=== PATIENT | male | born 1970 | race Caucasian/White ===

== ENCOUNTER 2018-08-31 21:46 | Emergency (ER) | payer OTHER ==
[2018-08-31 23:13] LABS: ADD MAN DIFF? NO
[2018-08-31 23:15] LABS: BASOPHILS % 0.4 % (0.0-2.0); EOSINOPHILS # 0.4 10^3/ul (0.0-0.5); EOSINOPHILS % 8.9 % (0.0-7.0); HEMATOCRIT 40.9 % (42.0-52.0); HEMOGLOBIN 14.4 g/dl (14.0-18.0); LYMPHOCYTES # 1.2 10^3/ul (0.8-2.9); LYMPHOCYTES % 24.6 % (15.0-51.0); MEAN CORPUSCULAR HEMOGLOBIN 29.4 pg (29.0-33.0); MEAN CORPUSCULAR HGB CONC 35.2 g/dl (32.0-37.0); MEAN CORPUSCULAR VOLUME 83.6 fl (82.0-101.0); MEAN PLATELET VOLUME 9.9 fl (7.4-10.4); MONOCYTE # 0.6 10^3/ul (0.3-0.9); MONOCYTES % 12.1 % (0.0-11.0); NEUTROPHIL # 2.5 10^3/ul (1.6-7.5); NEUTROPHILS % 53.8 % (39.0-77.0); PLATELET COUNT 217 10^3/UL (140-415); RED BLOOD COUNT 4.89 10^6/ul (4.70-6.10); RED CELL DISTRIBUTION WIDTH 12.5 % (11.5-14.5)
[2018-08-31 23:15] LABS: WHITE BLOOD COUNT 4.7 10^3/ul (4.8-10.8)
[2018-08-31 23:33] LABS: ALANINE AMINOTRANSFERASE 47 IU/L (13-69); ALBUMIN 4.3 g/dl (3.3-4.9); ALBUMIN/GLOBULIN RATIO 1.16; ALKALINE PHOSPHATASE 176 IU/L (42-121); ANION GAP 12 (5-13); ASPARTATE AMINO TRANSFERASE 42 IU/L (15-46); BILIRUBIN,INDIRECT 0.8 mg/dl (0-1.1); BILIRUBIN,TOTAL 0.8 mg/dl (0.2-1.3); BLOOD UREA NITROGEN 15 mg/dl (7-20); CALCIUM 8.9 mg/dl (8.4-10.2); CARBON DIOXIDE 26 mmol/L (21-31); CHLORIDE 103 mmol/L (97-110); CREATININE 0.81 mg/dl (0.61-1.24); Estimated GFR > 60 mL/min (>60); GLUCOSE 87 mg/dl (70-220); LIPASE 62 U/L (23-300); POTASSIUM 3.1 mmol/L (3.5-5.1); SODIUM 141 mmol/L (135-144)
[2018-09-01] MEDS: IOHEXOL 300MG/ML 150 ML BTL (00:13)
[2018-09-01] MEDS: SOD CHLORIDE 0.9% 100 ML (00:13)
[2018-09-01] MEDS: ONDANSETRON 4 MG INJ IV (02:20)
[2018-09-01] MEDS: HYDROmorphONE 1 MG/ML SYG IV (02:20)
== END 2018-09-01 03:50 | disposition home or self-care (01) ==
LOC: E/R 09-01 03:50
DX: J18.1 Lobar pneumonia, unspecified organism (principal); K59.00 Constipation, unspecified
CPT/HCPCS: 36415; 74177; 80053; 83690; 85025; 99284-25

== ENCOUNTER 2018-09-07 21:50 | Inpatient (IN) | payer OTHER ==
[2018-09-07] MEDS: ALBUTEROL 0.5% (NEB) 2.5 MG/0.5 ML AMP INH (22:29)
[2018-09-07 22:43] LABS: ADD MAN DIFF? NO
[2018-09-07] MEDS: CEFTRIAXONE 1 GM/50 ML (PMX) 50 ML IVPB (22:47)
[2018-09-07] MEDS: IBUPROFEN 600 MG TAB PO (22:47)
[2018-09-07] MEDS: SODIUM CHLORIDE 0.9% 1L BAG IV* (22:48)
[2018-09-07 22:52] LABS: BASOPHILS % 0.6 % (0.0-2.0); EOSINOPHILS # 0.5 10^3/ul (0.0-0.5); EOSINOPHILS % 8.3 % (0.0-7.0); HEMATOCRIT 45.2 % (42.0-52.0); HEMOGLOBIN 15.7 g/dl (14.0-18.0); LYMPHOCYTES # 1.3 10^3/ul (0.8-2.9); LYMPHOCYTES % 21.2 % (15.0-51.0); MEAN CORPUSCULAR HEMOGLOBIN 29.3 pg (29.0-33.0); MEAN CORPUSCULAR HGB CONC 34.7 g/dl (32.0-37.0); MEAN CORPUSCULAR VOLUME 84.3 fl (82.0-101.0); MEAN PLATELET VOLUME 10.1 fl (7.4-10.4); MONOCYTE # 0.6 10^3/ul (0.3-0.9); MONOCYTES % 9.5 % (0.0-11.0); NEUTROPHIL # 3.7 10^3/ul (1.6-7.5); NEUTROPHILS % 59.9 % (39.0-77.0); PLATELET COUNT 274 10^3/UL (140-415); RED BLOOD COUNT 5.36 10^6/ul (4.70-6.10); RED CELL DISTRIBUTION WIDTH 12.3 % (11.5-14.5)
[2018-09-07 22:52] LABS: WHITE BLOOD COUNT 6.2 10^3/ul (4.8-10.8)
[2018-09-07 23:08] LABS: ALANINE AMINOTRANSFERASE 55 IU/L (13-69); ALBUMIN 4.8 g/dl (3.3-4.9); ALBUMIN/GLOBULIN RATIO 1.23; ALKALINE PHOSPHATASE 152 IU/L (42-121); ANION GAP 13 (5-13); ASPARTATE AMINO TRANSFERASE 51 IU/L (15-46); BILIRUBIN,INDIRECT 0.7 mg/dl (0-1.1); BILIRUBIN,TOTAL 0.7 mg/dl (0.2-1.3); BLOOD UREA NITROGEN 14 mg/dl (7-20); CALCIUM 9.5 mg/dl (8.4-10.2); CARBON DIOXIDE 27 mmol/L (21-31); CHLORIDE 101 mmol/L (97-110); CREATININE 0.76 mg/dl (0.61-1.24); Estimated GFR > 60 mL/min (>60); GLUCOSE 105 mg/dl (70-220); LIPASE 91 U/L (23-300); POTASSIUM 3.6 mmol/L (3.5-5.1); SODIUM 141 mmol/L (135-144); TOTAL PROTEIN 8.7 g/dl (6.1-8.1)
[2018-09-07 23:11] LABS: INR 0.94; PROTIME 12.7 Sec (11.9-14.9)
[2018-09-07 23:17] LABS: B-TYPE NATRIURETIC PEPTIDE 43 PG/ML (0-125)
[2018-09-07 23:20] LABS: TROPONIN-I < 0.012 ng/ml (0.000-0.120)
[2018-09-08] MEDS: ALBUTEROL 0.083% (NEB) 2.5 MG/3 ML AMP HHN (00:42)
[2018-09-08 00:57] LABS: LACTIC ACID 1.8 mmol/L (0.5-2.0)
[2018-09-08] MEDS ORDERED: ACETAMINOPHEN 325 MG TAB PO (06:00)
[2018-09-08] MEDS ORDERED: CEFTRIAXONE 1 GM/50 ML (PMX) 50 ML IVPB (06:00)
[2018-09-08] MEDS ORDERED: ONDANSETRON 4 MG INJ IV (06:00)
[2018-09-08] MEDS: PANTOPRAZOLE (EC) 40 MG TAB PO (06:34)
[2018-09-08] MEDS: SOD CHLORIDE 0.9% 1,000 ML IV (06:35)
[2018-09-08] MEDS: AZITHROMYCIN 500 MG in SOD CHLORIDE 0.9% 250 ML IVPB (08:26)
[2018-09-08] MEDS: IBUPROFEN 600 MG TAB GTB ×3 (08:28→21:32)
[2018-09-08] MEDS: ENOXAPARIN 40 MG/0.4 ML SYG SC (08:37)
[2018-09-08 15:33] LABS: HAAIG REFLEX REFLEX FILED
[2018-09-08 16:11] LABS: HEPATITIS B SURFACE ANTIGEN NEGATIVE (NEGATIVE)
[2018-09-08 16:29] LABS: HEPATITIS B CORE ANTIBODY NEGATIVE (NEGATIVE); HEPATITIS C VIRAL ANTIBODY NEGATIVE (NEGATIVE)
[2018-09-08] MEDS: SOD CHLORIDE 0.9% 100 ML (18:02)
[2018-09-08] MEDS: IODIXANOL LOCM 100 ML BTL (18:03)
[2018-09-08] MEDS: CEFTRIAXONE 1 GM/50 ML (PMX) 50 ML IVPB (21:31)
[2018-09-09] MEDS: SOD CHLORIDE 0.9% 1,000 ML IV (02:00)
[2018-09-09] MEDS: HYDROCODONE/APAP (5/325) TAB PO (04:57)
[2018-09-09] MEDS: PANTOPRAZOLE (EC) 40 MG TAB PO (05:10)
[2018-09-09 06:13] LABS: ADD MAN DIFF? NO
[2018-09-09 06:21] LABS: WHITE BLOOD COUNT 5.7 10^3/ul (4.8-10.8)
[2018-09-09 06:21] LABS: BASOPHILS % 0.5 % (0.0-2.0); EOSINOPHILS # 0.5 10^3/ul (0.0-0.5); EOSINOPHILS % 8.4 % (0.0-7.0); HEMATOCRIT 40.1 % (42.0-52.0); HEMOGLOBIN 13.8 g/dl (14.0-18.0); LYMPHOCYTES # 0.9 10^3/ul (0.8-2.9); LYMPHOCYTES % 15.7 % (15.0-51.0); MEAN CORPUSCULAR HEMOGLOBIN 29.7 pg (29.0-33.0); MEAN CORPUSCULAR HGB CONC 34.4 g/dl (32.0-37.0); MEAN CORPUSCULAR VOLUME 86.4 fl (82.0-101.0); MONOCYTE # 0.7 10^3/ul (0.3-0.9); MONOCYTES % 12.4 % (0.0-11.0); NEUTROPHIL # 3.6 10^3/ul (1.6-7.5); NEUTROPHILS % 62.5 % (39.0-77.0); PLATELET COUNT 212 10^3/UL (140-415); RED BLOOD COUNT 4.64 10^6/ul (4.70-6.10); RED CELL DISTRIBUTION WIDTH 12.9 % (11.5-14.5)
[2018-09-09 06:56] LABS: ANION GAP 7 (5-13); BLOOD UREA NITROGEN 11 mg/dl (7-20); CALCIUM 8.5 mg/dl (8.4-10.2); CARBON DIOXIDE 25 mmol/L (21-31); CHLORIDE 108 mmol/L (97-110); Estimated GFR > 60 mL/min (>60); GLUCOSE 103 mg/dl (70-220); POTASSIUM 4.3 mmol/L (3.5-5.1); SODIUM 140 mmol/L (135-144)
[2018-09-09] MEDS: ENOXAPARIN 40 MG/0.4 ML SYG SC (08:41)
[2018-09-09] MEDS: IBUPROFEN 600 MG TAB GTB ×3 (08:44→21:33)
[2018-09-09] MEDS: AL HYDROX/MG HYDROX/SIMETH 30 ML CUP PO (08:44)
[2018-09-09] MEDS: AZITHROMYCIN 500MG/NS (PMX) 250 ML IVPB (12:19)
[2018-09-09] MEDS: LUBIPROSTONE 24 MCG CAP PO (21:32)
[2018-09-09] MEDS: POLYETHYLENE GLYCOL 17 GM PACKET PO (21:33)
[2018-09-09] MEDS: CEFTRIAXONE 1 GM/50 ML (PMX) 50 ML IVPB (21:45)
[2018-09-10] MEDS: PANTOPRAZOLE (EC) 40 MG TAB PO (05:25)
[2018-09-10] MEDS: IBUPROFEN 600 MG TAB GTB ×2 (05:25→20:55)
[2018-09-10] MEDS ORDERED: AZITHROMYCIN 250 MG TAB PO (06:00)
[2018-09-10] MEDS ORDERED: IBUPROFEN 600 MG TAB PO (06:00)
[2018-09-10] MEDS ORDERED: POLYETHYLENE GLYCOL 17 GM PACKET PO (09:00)
[2018-09-10] MEDS: AZITHROMYCIN 250 MG TAB PO (09:47)
[2018-09-10] MEDS: LUBIPROSTONE 24 MCG CAP PO ×2 (09:47→20:54)
[2018-09-10] MEDS: ACYCLOVIR 800 MG TAB PO ×4 (09:48→21:04)
[2018-09-10] MEDS: GABAPENTIN 300 MG CAP PO ×2 (09:48→20:56)
[2018-09-10] MEDS: BISACODYL (EC) 5 MG TAB PO ×2 (15:59→20:54)
[2018-09-10] MEDS: PEG/ELECTROLYTES 4L BTL PO ×2 (16:02→20:57)
[2018-09-10] MEDS: GUAIFENESIN/DM 5ML CUP PO (20:55)
[2018-09-10] MEDS: CEFTRIAXONE 1 GM/50 ML (PMX) 50 ML IVPB (22:00)
[2018-09-11] MEDS: FLUCONAZOLE 200 MG (PMX) 100 ML IVPB ×2 (00:31→23:44)
[2018-09-11] MEDS: PANTOPRAZOLE (EC) 40 MG TAB PO (05:20)
[2018-09-11 05:35] LABS: ADD MAN DIFF? NO
[2018-09-11 05:48] LABS: BASOPHILS % 0.6 % (0.0-2.0); EOSINOPHILS # 0.3 10^3/ul (0.0-0.5); EOSINOPHILS % 4.8 % (0.0-7.0); HEMATOCRIT 40.4 % (42.0-52.0); HEMOGLOBIN 14.1 g/dl (14.0-18.0); LYMPHOCYTES # 1.2 10^3/ul (0.8-2.9); LYMPHOCYTES % 21.3 % (15.0-51.0); MEAN CORPUSCULAR HEMOGLOBIN 29.7 pg (29.0-33.0); MEAN CORPUSCULAR HGB CONC 34.9 g/dl (32.0-37.0); MEAN CORPUSCULAR VOLUME 85.1 fl (82.0-101.0); MEAN PLATELET VOLUME 10.4 fl (7.4-10.4); MONOCYTE # 0.7 10^3/ul (0.3-0.9); NEUTROPHIL # 3.3 10^3/ul (1.6-7.5); NEUTROPHILS % 59.7 % (39.0-77.0); PLATELET COUNT 226 10^3/UL (140-415); RED BLOOD COUNT 4.75 10^6/ul (4.70-6.10); RED CELL DISTRIBUTION WIDTH 12.5 % (11.5-14.5)
[2018-09-11 05:48] LABS: WHITE BLOOD COUNT 5.5 10^3/ul (4.8-10.8)
[2018-09-11 05:59] LABS: INR 1.02; PROTIME 13.5 Sec (11.9-14.9); PT RATIO 1.1
[2018-09-11 06:00] LABS: PARTIAL THROMBOPLASTIN TIME 39.8 Sec (23.0-35.0)
[2018-09-11 06:43] LABS: ALANINE AMINOTRANSFERASE 107 IU/L (13-69); ALBUMIN/GLOBULIN RATIO 1.11; ALKALINE PHOSPHATASE 241 IU/L (42-121); ANION GAP 11 (5-13); ASPARTATE AMINO TRANSFERASE 115 IU/L (15-46); BILIRUBIN,INDIRECT 0.5 mg/dl (0-1.1); BILIRUBIN,TOTAL 0.5 mg/dl (0.2-1.3); BLOOD UREA NITROGEN 12 mg/dl (7-20); CALCIUM 8.7 mg/dl (8.4-10.2); CARBON DIOXIDE 22 mmol/L (21-31); CHLORIDE 103 mmol/L (97-110); CREATININE 0.79 mg/dl (0.61-1.24); Estimated GFR > 60 mL/min (>60); GLUCOSE 107 mg/dl (70-220); POTASSIUM 3.9 mmol/L (3.5-5.1); SODIUM 136 mmol/L (135-144); TOTAL PROTEIN 7.6 g/dl (6.1-8.1)
[2018-09-11] MEDS: LUBIPROSTONE 24 MCG CAP PO ×2 (09:00→20:34)
[2018-09-11] MEDS: AZITHROMYCIN 250 MG TAB PO (09:00)
[2018-09-11] MEDS: ACYCLOVIR 800 MG TAB PO ×5 (09:00→20:34)
[2018-09-11] MEDS: GABAPENTIN 300 MG CAP PO ×2 (09:00→20:34)
[2018-09-11] MEDS: PROPOFOL 40 ML (11:38)
[2018-09-11] MEDS: LIDOCAINE 100 MG SYRINGE (11:38)
[2018-09-11] MEDS: FENTAnyl 50 MCG/ML VIAL (11:51)
[2018-09-11] MEDS: GUAIFENESIN/DM 5ML CUP PO (20:33)
[2018-09-11] MEDS: CEFTRIAXONE 1 GM/50 ML (PMX) 50 ML IVPB (22:21)
[2018-09-11] MEDS: HYDROCODONE/APAP (5/325) TAB PO (23:55)
[2018-09-12] MEDS: PANTOPRAZOLE (EC) 40 MG TAB PO (05:36)
[2018-09-12] MEDS: LUBIPROSTONE 24 MCG CAP PO ×2 (09:51→20:56)
[2018-09-12] MEDS: GABAPENTIN 300 MG CAP PO ×2 (09:51→20:57)
[2018-09-12] MEDS: AZITHROMYCIN 250 MG TAB PO (09:51)
[2018-09-12] MEDS: ACYCLOVIR 800 MG TAB PO ×5 (10:12→21:00)
[2018-09-12] MEDS: GUAIFENESIN/DM 5ML CUP PO (12:56)
[2018-09-12] MEDS: IBUPROFEN 200 MG TAB PO (15:00)
[2018-09-12] MEDS: IBUPROFEN 600 MG TAB GTB (19:16)
[2018-09-12] MEDS: CEFTRIAXONE 1 GM/50 ML (PMX) 50 ML IVPB (21:01)
[2018-09-12] MEDS: AL HYDROX/MG HYDROX/SIMETH 30 ML CUP PO (21:31)
[2018-09-12] MEDS: FLUCONAZOLE 400 MG/NS (PMX) 200 ML IVPB (22:24)
[2018-09-13] MEDS: PANTOPRAZOLE (EC) 40 MG TAB PO (06:13)
[2018-09-13 08:01] LABS: ADD MAN DIFF? NO
[2018-09-13 08:13] LABS: BASOPHILS % 0.8 % (0.0-2.0); EOSINOPHILS # 0.5 10^3/ul (0.0-0.5); EOSINOPHILS % 13.4 % (0.0-7.0); HEMOGLOBIN 13.4 g/dl (14.0-18.0); MEAN CORPUSCULAR HEMOGLOBIN 29.1 pg (29.0-33.0); MEAN CORPUSCULAR HGB CONC 34.4 g/dl (32.0-37.0); MEAN CORPUSCULAR VOLUME 84.8 fl (82.0-101.0); MEAN PLATELET VOLUME 10.4 fl (7.4-10.4); MONOCYTE # 0.5 10^3/ul (0.3-0.9); MONOCYTES % 14.7 % (0.0-11.0); NEUTROPHIL # 1.6 10^3/ul (1.6-7.5); NEUTROPHILS % 43.8 % (39.0-77.0); PLATELET COUNT 216 10^3/UL (140-415); RED CELL DISTRIBUTION WIDTH 12.8 % (11.5-14.5)
[2018-09-13 08:13] LABS: WHITE BLOOD COUNT 3.7 10^3/ul (4.8-10.8)
[2018-09-13 08:22] LABS: ALANINE AMINOTRANSFERASE 75 IU/L (13-69); ALBUMIN 3.5 g/dl (3.3-4.9); ALBUMIN/GLOBULIN RATIO 1.02; ALKALINE PHOSPHATASE 203 IU/L (42-121); ANION GAP 7 (5-13); ASPARTATE AMINO TRANSFERASE 58 IU/L (15-46); BILIRUBIN,INDIRECT 0.3 mg/dl (0-1.1); BILIRUBIN,TOTAL 0.3 mg/dl (0.2-1.3); BLOOD UREA NITROGEN 14 mg/dl (7-20); CALCIUM 8.7 mg/dl (8.4-10.2); CARBON DIOXIDE 28 mmol/L (21-31); CHLORIDE 105 mmol/L (97-110); CREATININE 0.78 mg/dl (0.61-1.24); Estimated GFR > 60 mL/min (>60); GLUCOSE 105 mg/dl (70-220); SODIUM 140 mmol/L (135-144); TOTAL PROTEIN 6.9 g/dl (6.1-8.1)
[2018-09-13] MEDS: LUBIPROSTONE 24 MCG CAP PO ×2 (09:02→20:50)
[2018-09-13] MEDS: AZITHROMYCIN 250 MG TAB PO (09:03)
[2018-09-13] MEDS: GABAPENTIN 300 MG CAP PO ×2 (09:03→20:50)
[2018-09-13] MEDS: ACYCLOVIR 800 MG TAB PO ×5 (10:16→20:50)
[2018-09-13] MEDS: FLUCONAZOLE 400 MG/NS (PMX) 200 ML IVPB (23:07)
[2018-09-14] MEDS: IBUPROFEN 600 MG TAB GTB (00:52)
[2018-09-14] MEDS: GUAIFENESIN/DM 5ML CUP PO (00:52)
[2018-09-14 05:28] LABS: ADD MAN DIFF? NO
[2018-09-14 05:32] LABS: BASOPHIL # 0.1 10^3/ul (0.0-0.1); BASOPHILS % 1.1 % (0.0-2.0); EOSINOPHILS # 0.6 10^3/ul (0.0-0.5); EOSINOPHILS % 13.2 % (0.0-7.0); HEMATOCRIT 40.6 % (42.0-52.0); HEMOGLOBIN 13.9 g/dl (14.0-18.0); LYMPHOCYTES # 1.3 10^3/ul (0.8-2.9); LYMPHOCYTES % 28.5 % (15.0-51.0); MEAN CORPUSCULAR HEMOGLOBIN 29.3 pg (29.0-33.0); MEAN CORPUSCULAR HGB CONC 34.2 g/dl (32.0-37.0); MEAN CORPUSCULAR VOLUME 85.7 fl (82.0-101.0); MEAN PLATELET VOLUME 9.9 fl (7.4-10.4); MONOCYTE # 0.6 10^3/ul (0.3-0.9); MONOCYTES % 11.9 % (0.0-11.0); NEUTROPHIL # 2.1 10^3/ul (1.6-7.5); NEUTROPHILS % 45.1 % (39.0-77.0); PLATELET COUNT 251 10^3/UL (140-415); RED BLOOD COUNT 4.74 10^6/ul (4.70-6.10); RED CELL DISTRIBUTION WIDTH 12.4 % (11.5-14.5)
[2018-09-14 05:32] LABS: WHITE BLOOD COUNT 4.7 10^3/ul (4.8-10.8)
[2018-09-14] MEDS: PANTOPRAZOLE (EC) 40 MG TAB PO (05:33)
[2018-09-14] MEDS: LEVOFLOXACIN 500 MG TAB PO (05:33)
[2018-09-14] MEDS: GABAPENTIN 300 MG CAP PO ×3 (09:00→21:20)
[2018-09-14] MEDS: LUBIPROSTONE 24 MCG CAP PO ×2 (09:15→21:20)
[2018-09-14] MEDS: ACYCLOVIR 800 MG TAB PO ×5 (09:38→21:20)
[2018-09-14] MEDS: FLUCONAZOLE 400 MG/NS (PMX) 200 ML IVPB (23:38)
[2018-09-15] MEDS: LEVOFLOXACIN 500 MG TAB PO (05:42)
[2018-09-15] MEDS: PANTOPRAZOLE (EC) 40 MG TAB PO (05:43)
[2018-09-15] MEDS: ACYCLOVIR 800 MG TAB PO ×5 (09:00→17:33)
[2018-09-15] MEDS: GABAPENTIN 300 MG CAP PO (09:00)
[2018-09-15] MEDS: LUBIPROSTONE 24 MCG CAP PO (09:26)
[2018-09-15] MEDS ORDERED: NYSTATIN SUSP 5 ML CUP PO (21:00)
== END 2018-09-15 18:55 | disposition home or self-care (01) | DRG 194 ==
LOC: MS1 09-10 06:06 → E/R 21:50 → ICU 09-08 00:43 → TEL 09-08 18:01
PROC: 0DB68ZX Excision of Stomach, Via Natural or Artificial Opening Endoscopic, Diagnostic (ICD-10-PCS; principal; 2018-09-11 11:11)
PROC: 0DJD8ZZ Inspection of Lower Intestinal Tract, Via Natural or Artificial Opening Endoscopic (ICD-10-PCS; 2018-09-11 11:11)
DX: J18.9 Pneumonia, unspecified organism (principal); J90 Pleural effusion, not elsewhere classified; B37.89 Other sites of candidiasis; B48.8 Other specified mycoses; R78.81 Bacteremia; Z87.891 Personal history of nicotine dependence; R79.89 Other specified abnormal findings of blood chemistry; R07.81 Pleurodynia; K59.00 Constipation, unspecified; R14.0 Abdominal distension (gaseous); E66.9 Obesity, unspecified; Z68.30 Body mass index [BMI] 30.0-30.9, adult; R10.12 Left upper quadrant pain; D64.9 Anemia, unspecified; K29.00 Acute gastritis without bleeding; K29.80 Duodenitis without bleeding; R19.4 Change in bowel habit; K64.8 Other hemorrhoids; K76.0 Fatty (change of) liver, not elsewhere classified
CPT/HCPCS: 36415; 71045; 71260; 76705; 80048; 80053; 83605; 83690; 83880; 84484; 85025; 85610; 85730; 86704; 86709; 86803; 87040; 87070; 87081; 87340; 87400; 88305; 88312; 93005; 94644; 94645; 96374; 99285-25

== ENCOUNTER 2018-12-15 00:26 | Inpatient (IN) | payer OTHER ==
[2018-12-15] MEDS: IBUPROFEN 600 MG TAB PO (01:25)
[2018-12-15] MEDS: CEFTRIAXONE 1 GM/50 ML (PMX) 50 ML IVPB (01:27)
[2018-12-15 01:28] LABS: ADD MAN DIFF? NO
[2018-12-15] MEDS: SODIUM CHLORIDE 0.9% 1L BAG IV* (01:28)
[2018-12-15 01:32] LABS: WHITE BLOOD COUNT 5.4 10^3/ul (4.8-10.8)
[2018-12-15 01:32] LABS: BASOPHILS % 0.6 % (0.0-2.0); EOSINOPHILS # 0.3 10^3/ul (0.0-0.5); EOSINOPHILS % 5.7 % (0.0-7.0); HEMATOCRIT 42.3 % (42.0-52.0); HEMOGLOBIN 14.9 g/dl (14.0-18.0); LYMPHOCYTES # 0.9 10^3/ul (0.8-2.9); LYMPHOCYTES % 16.5 % (15.0-51.0); MEAN CORPUSCULAR HEMOGLOBIN 29.7 pg (29.0-33.0); MEAN CORPUSCULAR HGB CONC 35.2 g/dl (32.0-37.0); MEAN CORPUSCULAR VOLUME 84.4 fl (82.0-101.0); MONOCYTE # 0.6 10^3/ul (0.3-0.9); MONOCYTES % 11.5 % (0.0-11.0); NEUTROPHIL # 3.5 10^3/ul (1.6-7.5); NEUTROPHILS % 65.3 % (39.0-77.0); PLATELET COUNT 185 10^3/UL (140-415); RED BLOOD COUNT 5.01 10^6/ul (4.70-6.10); RED CELL DISTRIBUTION WIDTH 12.4 % (11.5-14.5)
[2018-12-15 01:40] LABS: ADD UMIC NO; UR ASCORBIC ACID NEGATIVE (NEGATIVE); UR BILIRUBIN (Dip) NEGATIVE (NEGATIVE); UR BLOOD (Dip) NEGATIVE (NEGATIVE); UR CLARITY CLEAR (CLEAR); UR COLOR YELLOW (YELLOW); UR GLUCOSE (Dip) NEGATIVE (NEGATIVE); UR KETONES (Dip) NEGATIVE (NEGATIVE); UR LEUKOCYTE ESTERASE (Dip) NEGATIVE Leu/ul (NEGATIVE); UR NITRITE (Dip) NEGATIVE (NEGATIVE); UR SPECIFIC GRAVITY (Dip) 1.023 (1.003-1.030); UR TOTAL PROTEIN (Dip) NEGATIVE (NEGATIVE); UR UROBILINOGEN (Dip) NEGATIVE (NEGATIVE)
[2018-12-15 01:51] LABS: INR 0.92; PROTIME 12.5 Sec (11.9-14.9)
[2018-12-15 01:52] LABS: PARTIAL THROMBOPLASTIN TIME 32.6 Sec (23.0-35.0)
[2018-12-15 01:53] LABS: ALANINE AMINOTRANSFERASE 48 IU/L (13-69); ALBUMIN 4.4 g/dl (3.3-4.9); ALBUMIN/GLOBULIN RATIO 1.02; ALKALINE PHOSPHATASE 221 IU/L (42-121); ANION GAP 13 (5-13); ASPARTATE AMINO TRANSFERASE 47 IU/L (15-46); BILIRUBIN,INDIRECT 0.4 mg/dl (0-1.1); BILIRUBIN,TOTAL 0.4 mg/dl (0.2-1.3); BLOOD UREA NITROGEN 17 mg/dl (7-20); C-REACTIVE PROTEIN 6.7 mg/dl (0.0-0.9); CALCIUM 9.5 mg/dl (8.4-10.2); CARBON DIOXIDE 26 mmol/L (21-31); CHLORIDE 104 mmol/L (97-110); CREATININE 0.84 mg/dl (0.61-1.24); Estimated GFR > 60 mL/min (>60); GLUCOSE 90 mg/dl (70-220); LIPASE 86 U/L (23-300); POTASSIUM 3.5 mmol/L (3.5-5.1); SODIUM 143 mmol/L (135-144); TOTAL PROTEIN 8.7 g/dl (6.1-8.1)
[2018-12-15] MEDS ORDERED: ONDANSETRON 4 MG INJ IV (05:30)
[2018-12-15] MEDS: PANTOPRAZOLE (EC) 40 MG TAB PO (05:39)
[2018-12-15] MEDS: SOD CHLORIDE 0.9% 1,000 ML IV ×2 (05:39→17:10)
[2018-12-15 06:54] LABS: LACTIC ACID 1.2 mmol/L (0.5-2.0)
[2018-12-16] MEDS: CEFTRIAXONE 1 GM/50 ML (PMX) 50 ML IVPB (01:27)
[2018-12-16] MEDS: ACETAMINOPHEN 325 MG TAB PO ×3 (01:50→18:13)
[2018-12-16 05:18] LABS: ADD MAN DIFF? NO
[2018-12-16 05:21] LABS: WHITE BLOOD COUNT 5.4 10^3/ul (4.8-10.8)
[2018-12-16 05:21] LABS: BASOPHILS % 0.4 % (0.0-2.0); EOSINOPHILS # 0.2 10^3/ul (0.0-0.5); EOSINOPHILS % 3.9 % (0.0-7.0); HEMATOCRIT 38.3 % (42.0-52.0); HEMOGLOBIN 13.5 g/dl (14.0-18.0); LYMPHOCYTES # 0.9 10^3/ul (0.8-2.9); LYMPHOCYTES % 15.9 % (15.0-51.0); MEAN CORPUSCULAR HEMOGLOBIN 29.2 pg (29.0-33.0); MEAN CORPUSCULAR HGB CONC 35.2 g/dl (32.0-37.0); MEAN CORPUSCULAR VOLUME 82.7 fl (82.0-101.0); MEAN PLATELET VOLUME 10.2 fl (7.4-10.4); MONOCYTE # 0.6 10^3/ul (0.3-0.9); MONOCYTES % 11.9 % (0.0-11.0); NEUTROPHIL # 3.6 10^3/ul (1.6-7.5); NEUTROPHILS % 67.7 % (39.0-77.0); PLATELET COUNT 169 10^3/UL (140-415); RED BLOOD COUNT 4.63 10^6/ul (4.70-6.10); RED CELL DISTRIBUTION WIDTH 12.5 % (11.5-14.5)
[2018-12-16 05:34] LABS: ALANINE AMINOTRANSFERASE 38 IU/L (13-69); ALBUMIN 3.7 g/dl (3.3-4.9); ALBUMIN/GLOBULIN RATIO 0.97; ALKALINE PHOSPHATASE 199 IU/L (42-121); ANION GAP 10 (5-13); ASPARTATE AMINO TRANSFERASE 36 IU/L (15-46); BILIRUBIN,INDIRECT 0.3 mg/dl (0-1.1); BILIRUBIN,TOTAL 0.3 mg/dl (0.2-1.3); BLOOD UREA NITROGEN 13 mg/dl (7-20); CALCIUM 8.8 mg/dl (8.4-10.2); CARBON DIOXIDE 23 mmol/L (21-31); CHLORIDE 108 mmol/L (97-110); CREATININE 0.87 mg/dl (0.61-1.24); Estimated GFR > 60 mL/min (>60); GLUCOSE 96 mg/dl (70-220); POTASSIUM 4.2 mmol/L (3.5-5.1); SODIUM 141 mmol/L (135-144); TOTAL PROTEIN 7.5 g/dl (6.1-8.1)
[2018-12-16] MEDS: PANTOPRAZOLE (EC) 40 MG TAB PO (05:34)
[2018-12-16] MEDS: SOD CHLORIDE 0.9% 1,000 ML IV ×3 (06:01→23:53)
[2018-12-16] MEDS ORDERED: VANCOMYCIN IV PER PHARMACY XX (11:30)
[2018-12-16] MEDS: CEFEPIME 1GM/50 ML (PMX) 50 ML IVPB ×2 (13:30→20:34)
[2018-12-16 13:39] LABS: HIV 1&2 ANTIBODY REACTIVE (NEGATIVE)
[2018-12-16] MEDS: VANCOMYCIN HCL 1.75 GM in SOD CHLORIDE 0.9% 500 ML IVPB (15:12)
[2018-12-16] MEDS: TRIMETHOPRIM/SULFAMETHOX (DS) TAB PO (16:30)
[2018-12-16] MEDS: FLUCONAZOLE 100 MG TAB PO (17:26)
[2018-12-16] MEDS: IBUPROFEN 400 MG TAB PO (23:53)
[2018-12-17] MEDS: ACETAMINOPHEN 325 MG TAB PO (01:33)
[2018-12-17] MEDS: VANCOMYCIN HCL 1.25 GM in SOD CHLORIDE 0.9% 250 ML IVPB ×2 (02:28→15:15)
[2018-12-17] MEDS: PANTOPRAZOLE (EC) 40 MG TAB PO (06:00)
[2018-12-17 06:16] LABS: ADD MAN DIFF? NO
[2018-12-17 06:18] LABS: ABNORMAL IP MESSAGE 1; BASOPHILS % 0.5 % (0.0-2.0); EOSINOPHILS # 0.1 10^3/ul (0.0-0.5); EOSINOPHILS % 3.5 % (0.0-7.0); HEMATOCRIT 38.4 % (42.0-52.0); HEMOGLOBIN 13.4 g/dl (14.0-18.0); LYMPHOCYTES # 0.6 10^3/ul (0.8-2.9); LYMPHOCYTES % 13.9 % (15.0-51.0); MEAN CORPUSCULAR HEMOGLOBIN 29.5 pg (29.0-33.0); MEAN CORPUSCULAR HGB CONC 34.9 g/dl (32.0-37.0); MEAN CORPUSCULAR VOLUME 84.4 fl (82.0-101.0); MEAN PLATELET VOLUME 10.1 fl (7.4-10.4); MONOCYTE # 0.4 10^3/ul (0.3-0.9); MONOCYTES % 10.6 % (0.0-11.0); NEUTROPHIL # 2.8 10^3/ul (1.6-7.5); NEUTROPHILS % 71.2 % (39.0-77.0); PLATELET COUNT 155 10^3/UL (140-415); POSITIVE DIFF @See below; RED BLOOD COUNT 4.55 10^6/ul (4.70-6.10); RED CELL DISTRIBUTION WIDTH 12.2 % (11.5-14.5)
[2018-12-17 06:58] LABS: ANION GAP 9 (5-13); BLOOD UREA NITROGEN 12 mg/dl (7-20); CALCIUM 8.9 mg/dl (8.4-10.2); CARBON DIOXIDE 23 mmol/L (21-31); CHLORIDE 108 mmol/L (97-110); CREATININE 0.91 mg/dl (0.61-1.24); Estimated GFR > 60 mL/min (>60); GLUCOSE 108 mg/dl (70-220); POTASSIUM 4.4 mmol/L (3.5-5.1); SODIUM 140 mmol/L (135-144)
[2018-12-17 07:07] LABS: PHOSPHORUS 4.3 mg/dl (2.5-4.9)
[2018-12-17 07:07] LABS: MAGNESIUM 2.1 mg/dl (1.7-2.5)
[2018-12-17] MEDS: FLUCONAZOLE 100 MG TAB PO (09:03)
[2018-12-17] MEDS: TRIMETHOPRIM/SULFAMETHOX (DS) TAB PO (09:03)
[2018-12-17] MEDS: CEFEPIME 1GM/50 ML (PMX) 50 ML IVPB (09:03)
[2018-12-17] MEDS: SOD CHLORIDE 0.9% 1,000 ML IV ×2 (22:38→22:39)
[2018-12-18] MEDS: SOD CHLORIDE 0.9% 1,000 ML IV ×2 (00:10→14:24)
[2018-12-18] MEDS: IBUPROFEN 400 MG TAB PO (00:27)
[2018-12-18] MEDS: PANTOPRAZOLE (EC) 40 MG TAB PO (05:58)
[2018-12-18] MEDS: EMTRICITABINE 200 MG CAP PO (08:55)
[2018-12-18] MEDS: TENOFOVIR 300 MG TAB PO (08:57)
[2018-12-18] MEDS: FLUCONAZOLE 100 MG TAB PO (08:58)
[2018-12-18] MEDS: TRIMETHOPRIM/SULFAMETHOX (DS) TAB PO (08:58)
[2018-12-18 12:21] LABS: LYMPHOCYTE - % CD4 (HELPER) 5 % (30-61); LYMPHOCYTE - %CD8 (SUPPRESSOR) 44 % (12-42); LYMPHOCYTE - ABSOLUTE 517 cells/uL (850-3900); LYMPHOCYTE - ABSOLUTE CD4 26 cells/uL (490-1740); LYMPHOCYTE - ABSOLUTE CD8 227 cells/uL (180-1170); LYMPHOCYTE - CD4/CD8 RATIO 0.12 (0.86-5.00)
[2018-12-18] MEDS: AZITHROMYCIN 600 MG TAB PO (14:25)
[2018-12-18] MEDS: ACYCLOVIR 400 MG TAB PO ×2 (15:59→22:27)
[2018-12-18] MEDS: EFAVIRENZ 600 MG TAB PO (19:00)
[2018-12-18] MEDS: FLUCONAZOLE 200 MG TAB PO (21:45)
[2018-12-19] MEDS: SOD CHLORIDE 0.9% 1,000 ML IV ×3 (02:44→17:48)
[2018-12-19] MEDS: PANTOPRAZOLE (EC) 40 MG TAB PO (06:00)
[2018-12-19] MEDS: TENOFOVIR 300 MG TAB PO ×2 (09:00→21:25)
[2018-12-19] MEDS: TRIMETHOPRIM/SULFAMETHOX (DS) TAB PO (09:32)
[2018-12-19] MEDS: ACYCLOVIR 400 MG TAB PO ×2 (09:32→21:25)
[2018-12-19] MEDS: FLUCONAZOLE 200 MG TAB PO ×3 (09:32→21:25)
[2018-12-19 15:37] LABS: PROCALCITONIN 0.14 ng/mL (<0.10)
[2018-12-19] MEDS: EMTRICITABINE 200 MG CAP PO (21:25)
[2018-12-19] MEDS: EFAVIRENZ 600 MG TAB PO (21:26)
[2018-12-20 05:52] LABS: ANION GAP 9 (5-13); BLOOD UREA NITROGEN 9 mg/dl (7-20); CALCIUM 8.8 mg/dl (8.4-10.2); CARBON DIOXIDE 24 mmol/L (21-31); CHLORIDE 107 mmol/L (97-110); CREATININE 0.72 mg/dl (0.61-1.24); Estimated GFR > 60 mL/min (>60); GLUCOSE 100 mg/dl (70-220); POTASSIUM 4.1 mmol/L (3.5-5.1); SODIUM 140 mmol/L (135-144)
[2018-12-20] MEDS: PANTOPRAZOLE (EC) 40 MG TAB PO (06:57)
[2018-12-20] MEDS: ACYCLOVIR 400 MG TAB PO ×2 (08:56→21:21)
[2018-12-20] MEDS: TRIMETHOPRIM/SULFAMETHOX (DS) TAB PO (08:56)
[2018-12-20] MEDS: FLUCONAZOLE 200 MG TAB PO ×2 (08:57→21:21)
[2018-12-20] MEDS: SOD CHLORIDE 0.9% 1,000 ML IV (09:00)
[2018-12-20] MEDS: LIDOCAINE 1% (MPF) 5 ML VIAL (15:21)
[2018-12-20 18:19] LABS: GLUCOSE,CSF 47 mg/dl (50-80)
[2018-12-20 18:19] LABS: TOTAL PROTEIN,CSF 51 mg/dl (12-60)
[2018-12-20 18:23] LABS: CSF RBC 0 /uL (0-0); CSF WBC 1 /cmm (0-10)
[2018-12-20 18:25] LABS: CSF CLARITY CLEAR; CSF#TUBE COUNT TUBE#4; CSF#TUBES REC'D 4
[2018-12-20 18:25] LABS: CSF COLOR COLORLESS
[2018-12-20] MEDS: EMTRICITABINE 200 MG CAP PO (21:21)
[2018-12-20] MEDS: TENOFOVIR 300 MG TAB PO (21:21)
[2018-12-20] MEDS: EFAVIRENZ 600 MG TAB PO (21:21)
[2018-12-20 22:44] LABS: CRYPTOCOCCAL ANTIGEN - SOURCE SERUM
[2018-12-21] MEDS: PANTOPRAZOLE (EC) 40 MG TAB PO (05:36)
[2018-12-21 06:44] LABS: ADD MAN DIFF? NO
[2018-12-21 06:50] LABS: WHITE BLOOD COUNT 6.8 10^3/ul (4.8-10.8)
[2018-12-21 06:50] LABS: BASOPHILS % 0.6 % (0.0-2.0); EOSINOPHILS # 0.3 10^3/ul (0.0-0.5); EOSINOPHILS % 4.4 % (0.0-7.0); HEMATOCRIT 39.7 % (42.0-52.0); HEMOGLOBIN 13.8 g/dl (14.0-18.0); LYMPHOCYTES % 14.5 % (15.0-51.0); MEAN CORPUSCULAR HGB CONC 34.8 g/dl (32.0-37.0); MEAN CORPUSCULAR VOLUME 83.4 fl (82.0-101.0); MEAN PLATELET VOLUME 9.9 fl (7.4-10.4); MONOCYTE # 0.8 10^3/ul (0.3-0.9); NEUTROPHIL # 4.6 10^3/ul (1.6-7.5); NEUTROPHILS % 68.2 % (39.0-77.0); PLATELET COUNT 244 10^3/UL (140-415); RED BLOOD COUNT 4.76 10^6/ul (4.70-6.10); RED CELL DISTRIBUTION WIDTH 12.4 % (11.5-14.5)
[2018-12-21 07:10] LABS: ANION GAP 12 (5-13); BLOOD UREA NITROGEN 12 mg/dl (7-20); CALCIUM 9.1 mg/dl (8.4-10.2); CARBON DIOXIDE 26 mmol/L (21-31); CHLORIDE 103 mmol/L (97-110); CREATININE 0.87 mg/dl (0.61-1.24); Estimated GFR > 60 mL/min (>60); GLUCOSE 103 mg/dl (70-220); POTASSIUM 4.1 mmol/L (3.5-5.1); SODIUM 141 mmol/L (135-144)
[2018-12-21] MEDS: TRIMETHOPRIM/SULFAMETHOX (DS) TAB PO (08:44)
[2018-12-21] MEDS: ACYCLOVIR 400 MG TAB PO ×2 (08:44→21:05)
[2018-12-21] MEDS: FLUCONAZOLE 200 MG TAB PO ×2 (08:44→21:55)
[2018-12-21] MEDS: TENOFOVIR 300 MG TAB PO (21:05)
[2018-12-21] MEDS: EFAVIRENZ 600 MG TAB PO (21:05)
[2018-12-21] MEDS: EMTRICITABINE 200 MG CAP PO (21:05)
[2018-12-22 05:14] LABS: ADD MAN DIFF? NO
[2018-12-22 05:15] LABS: WHITE BLOOD COUNT 7.4 10^3/ul (4.8-10.8)
[2018-12-22 05:15] LABS: BASOPHIL # 0.1 10^3/ul (0.0-0.1); BASOPHILS % 0.7 % (0.0-2.0); EOSINOPHILS # 0.3 10^3/ul (0.0-0.5); EOSINOPHILS % 4.5 % (0.0-7.0); HEMATOCRIT 39.9 % (42.0-52.0); HEMOGLOBIN 13.7 g/dl (14.0-18.0); MEAN CORPUSCULAR HEMOGLOBIN 28.5 pg (29.0-33.0); MEAN CORPUSCULAR HGB CONC 34.3 g/dl (32.0-37.0); MEAN CORPUSCULAR VOLUME 83.1 fl (82.0-101.0); MONOCYTE # 0.8 10^3/ul (0.3-0.9); NEUTROPHIL # 5.1 10^3/ul (1.6-7.5); NEUTROPHILS % 69.4 % (39.0-77.0); PLATELET COUNT 258 10^3/UL (140-415); RED CELL DISTRIBUTION WIDTH 12.4 % (11.5-14.5)
[2018-12-22 05:49] LABS: ANION GAP 11 (5-13); BLOOD UREA NITROGEN 12 mg/dl (7-20); CALCIUM 8.9 mg/dl (8.4-10.2); CARBON DIOXIDE 26 mmol/L (21-31); CHLORIDE 104 mmol/L (97-110); CREATININE 0.78 mg/dl (0.61-1.24); Estimated GFR > 60 mL/min (>60); GLUCOSE 113 mg/dl (70-220); POTASSIUM 4.2 mmol/L (3.5-5.1); SODIUM 141 mmol/L (135-144)
[2018-12-22] MEDS: PANTOPRAZOLE (EC) 40 MG TAB PO (06:03)
[2018-12-22] MEDS: FLUCONAZOLE 200 MG TAB PO ×3 (09:05→22:47)
[2018-12-22] MEDS: ACYCLOVIR 400 MG TAB PO ×2 (09:05→21:28)
[2018-12-22] MEDS: TRIMETHOPRIM/SULFAMETHOX (DS) TAB PO (09:05)
[2018-12-22] MEDS: NYSTATIN SUSP 5 ML CUP PO ×2 (17:57→21:28)
[2018-12-22] MEDS: EMTRICITABINE 200 MG CAP PO (21:29)
[2018-12-22] MEDS: EFAVIRENZ 600 MG TAB PO (21:29)
[2018-12-22] MEDS: TENOFOVIR 300 MG TAB PO (21:30)
[2018-12-23] MEDS: PANTOPRAZOLE (EC) 40 MG TAB PO (06:49)
[2018-12-23] MEDS: ACYCLOVIR 400 MG TAB PO ×2 (08:22→22:28)
[2018-12-23] MEDS: FLUCONAZOLE 200 MG TAB PO ×2 (08:22→22:29)
[2018-12-23] MEDS: NYSTATIN SUSP 5 ML CUP PO ×5 (08:22→22:38)
[2018-12-23] MEDS: TRIMETHOPRIM/SULFAMETHOX (DS) TAB PO (08:22)
[2018-12-23] MEDS: SOD CHLORIDE 0.9% 1,000 ML IV (15:25)
[2018-12-23] MEDS: SOD CHLORIDE 0.9% 100 ML (18:52)
[2018-12-23] MEDS: IOHEXOL 300MG/ML 150 ML BTL (18:52)
[2018-12-23] MEDS: EFAVIRENZ 600 MG TAB PO (22:28)
[2018-12-23] MEDS: EMTRICITABINE 200 MG CAP PO (22:30)
[2018-12-23] MEDS: TENOFOVIR 300 MG TAB PO (22:38)
[2018-12-24] MEDS: SOD CHLORIDE 0.9% 1,000 ML IV ×2 (05:18→09:59)
[2018-12-24] MEDS: PANTOPRAZOLE (EC) 40 MG TAB PO (05:21)
[2018-12-24 06:36] LABS: ANION GAP 11 (5-13); BLOOD UREA NITROGEN 12 mg/dl (7-20); CALCIUM 9.4 mg/dl (8.4-10.2); CARBON DIOXIDE 23 mmol/L (21-31); CHLORIDE 107 mmol/L (97-110); Estimated GFR > 60 mL/min (>60); GLUCOSE 106 mg/dl (70-220); POTASSIUM 4.3 mmol/L (3.5-5.1); SODIUM 141 mmol/L (135-144)
[2018-12-24] MEDS: FLUCONAZOLE 200 MG TAB PO ×2 (09:01→21:03)
[2018-12-24] MEDS: TRIMETHOPRIM/SULFAMETHOX (DS) TAB PO (09:01)
[2018-12-24] MEDS: NYSTATIN SUSP 5 ML CUP PO ×4 (09:02→21:04)
[2018-12-24] MEDS: ACYCLOVIR 400 MG TAB PO ×2 (09:02→21:04)
[2018-12-24] MEDS: EFAVIRENZ 600 MG TAB PO (21:03)
[2018-12-24] MEDS: EMTRICITABINE 200 MG CAP PO (21:04)
[2018-12-24] MEDS: TENOFOVIR 300 MG TAB PO (21:04)
[2018-12-24 23:27] LABS: CRYPTOCOCCAL ANTIGEN - SOURCE CSF; VDRL, CSF NON-REACTIVE
[2018-12-25] MEDS: SOD CHLORIDE 0.9% 1,000 ML IV ×3 (02:44→19:39)
[2018-12-25] MEDS: PANTOPRAZOLE (EC) 40 MG TAB PO (06:52)
[2018-12-25] MEDS: TRIMETHOPRIM/SULFAMETHOX (DS) TAB PO (09:05)
[2018-12-25] MEDS: FLUCONAZOLE 200 MG TAB PO ×2 (09:05→21:08)
[2018-12-25] MEDS: ACYCLOVIR 400 MG TAB PO ×2 (09:05→21:08)
[2018-12-25] MEDS: NYSTATIN SUSP 5 ML CUP PO ×4 (09:06→21:08)
[2018-12-25] MEDS: IBUPROFEN 400 MG TAB PO (09:44)
[2018-12-25] MEDS: AZITHROMYCIN 600 MG TAB PO (15:24)
[2018-12-25] MEDS: EMTRICITABINE 200 MG CAP PO (21:08)
[2018-12-25] MEDS: EFAVIRENZ 600 MG TAB PO (21:08)
[2018-12-25] MEDS: TENOFOVIR 300 MG TAB PO (21:08)
[2018-12-26] MEDS: PANTOPRAZOLE (EC) 40 MG TAB PO (05:35)
[2018-12-26] MEDS: ACYCLOVIR 400 MG TAB PO ×2 (08:42→21:50)
[2018-12-26] MEDS: FLUCONAZOLE 200 MG TAB PO ×2 (08:42→21:50)
[2018-12-26] MEDS: NYSTATIN SUSP 5 ML CUP PO ×4 (08:42→21:50)
[2018-12-26] MEDS: TRIMETHOPRIM/SULFAMETHOX (DS) TAB PO (08:42)
[2018-12-26] MEDS: SOD CHLORIDE 0.9% 1,000 ML IV (11:43)
[2018-12-26 11:47] LABS: ANION GAP 13 (5-13); BLOOD UREA NITROGEN 10 mg/dl (7-20); CALCIUM 9.5 mg/dl (8.4-10.2); CARBON DIOXIDE 24 mmol/L (21-31); CHLORIDE 105 mmol/L (97-110); Estimated GFR > 60 mL/min (>60); GLUCOSE 136 mg/dl (70-220); POTASSIUM 4.3 mmol/L (3.5-5.1); SODIUM 142 mmol/L (135-144)
[2018-12-26] MEDS: EFAVIRENZ 600 MG TAB PO (21:50)
[2018-12-26] MEDS: TENOFOVIR 300 MG TAB PO (21:50)
[2018-12-26] MEDS: EMTRICITABINE 200 MG CAP PO (21:50)
[2018-12-27] MEDS: PANTOPRAZOLE (EC) 40 MG TAB PO (05:57)
[2018-12-27] MEDS: FLUCONAZOLE 200 MG TAB PO (09:05)
[2018-12-27] MEDS: ACYCLOVIR 400 MG TAB PO ×2 (09:05→21:50)
[2018-12-27] MEDS: TRIMETHOPRIM/SULFAMETHOX (DS) TAB PO (09:05)
[2018-12-27] MEDS: NYSTATIN SUSP 5 ML CUP PO ×4 (09:05→21:49)
[2018-12-27] MEDS: AMPHOTERICIN B LIPOSOME 300 MG in DEXTROSE 5% 300 ML IVPB (14:30)
[2018-12-27] MEDS: FLUCYTOSINE 500 MG CAP PO ×3 (18:19→22:05)
[2018-12-27] MEDS: SOD CHLORIDE 0.9% 1,000 ML IV (18:19)
[2018-12-27] MEDS: TENOFOVIR 300 MG TAB PO (21:50)
[2018-12-27] MEDS: EMTRICITABINE 200 MG CAP PO (21:51)
[2018-12-27] MEDS: EFAVIRENZ 600 MG TAB PO (21:52)
[2018-12-28] MEDS: SOD CHLORIDE 0.9% 1,000 ML IV ×3 (06:13→23:50)
[2018-12-28] MEDS: PANTOPRAZOLE (EC) 40 MG TAB PO (06:14)
[2018-12-28] MEDS: DAPSONE 100 MG TAB PO (09:22)
[2018-12-28] MEDS: NYSTATIN SUSP 5 ML CUP PO ×4 (09:23→21:14)
[2018-12-28] MEDS: FLUCYTOSINE 500 MG CAP PO ×4 (09:23→23:50)
[2018-12-28] MEDS: ACYCLOVIR 400 MG TAB PO ×2 (09:23→21:14)
[2018-12-28] MEDS: AMLODIPINE 10 MG TAB PO (13:25)
[2018-12-28] MEDS: AMPHOTERICIN B LIPOSOME 300 MG in DEXTROSE 5% 300 ML IVPB (14:25)
[2018-12-28] MEDS: EFAVIRENZ 600 MG TAB PO (21:14)
[2018-12-28] MEDS: EMTRICITABINE 200 MG CAP PO (21:14)
[2018-12-28] MEDS: TENOFOVIR 300 MG TAB PO (21:14)
[2018-12-29] MEDS: FLUCYTOSINE 500 MG CAP PO ×4 (06:01→23:47)
[2018-12-29] MEDS: PANTOPRAZOLE (EC) 40 MG TAB PO (06:01)
[2018-12-29 06:23] LABS: ADD MAN DIFF? NO
[2018-12-29 06:35] LABS: WHITE BLOOD COUNT 5.8 10^3/ul (4.8-10.8)
[2018-12-29 06:35] LABS: BASOPHILS % 0.7 % (0.0-2.0); EOSINOPHILS # 0.4 10^3/ul (0.0-0.5); EOSINOPHILS % 7.3 % (0.0-7.0); HEMATOCRIT 39.4 % (42.0-52.0); HEMOGLOBIN 13.4 g/dl (14.0-18.0); LYMPHOCYTES % 17.4 % (15.0-51.0); MEAN CORPUSCULAR HEMOGLOBIN 29.2 pg (29.0-33.0); MEAN CORPUSCULAR VOLUME 85.8 fl (82.0-101.0); MEAN PLATELET VOLUME 9.6 fl (7.4-10.4); MONOCYTE # 0.6 10^3/ul (0.3-0.9); MONOCYTES % 9.8 % (0.0-11.0); NEUTROPHIL # 3.7 10^3/ul (1.6-7.5); NEUTROPHILS % 64.3 % (39.0-77.0); PLATELET COUNT 281 10^3/UL (140-415); RED BLOOD COUNT 4.59 10^6/ul (4.70-6.10); RED CELL DISTRIBUTION WIDTH 13.3 % (11.5-14.5)
[2018-12-29 06:58] LABS: ANION GAP 12 (5-13); BLOOD UREA NITROGEN 12 mg/dl (7-20); CALCIUM 9.1 mg/dl (8.4-10.2); CARBON DIOXIDE 23 mmol/L (21-31); CHLORIDE 104 mmol/L (97-110); CREATININE 0.77 mg/dl (0.61-1.24); Estimated GFR > 60 mL/min (>60); GLUCOSE 114 mg/dl (70-220); POTASSIUM 4.1 mmol/L (3.5-5.1); SODIUM 139 mmol/L (135-144)
[2018-12-29] MEDS: NYSTATIN SUSP 5 ML CUP PO ×4 (09:24→21:03)
[2018-12-29] MEDS: ACYCLOVIR 400 MG TAB PO ×2 (09:27→21:03)
[2018-12-29] MEDS: AMLODIPINE 10 MG TAB PO (09:27)
[2018-12-29] MEDS: DAPSONE 100 MG TAB PO (09:33)
[2018-12-29] MEDS: SOD CHLORIDE 0.9% 1,000 ML IV ×3 (10:24→23:47)
[2018-12-29] MEDS: AMPHOTERICIN B LIPOSOME 300 MG in DEXTROSE 5% 300 ML IVPB (14:36)
[2018-12-29] MEDS: EFAVIRENZ 600 MG TAB PO (21:03)
[2018-12-29] MEDS: EMTRICITABINE 200 MG CAP PO (21:03)
[2018-12-29] MEDS: TENOFOVIR 300 MG TAB PO (21:03)
[2018-12-30] MEDS: PANTOPRAZOLE (EC) 40 MG TAB PO (05:43)
[2018-12-30] MEDS: FLUCYTOSINE 500 MG CAP PO ×3 (05:44→18:34)
[2018-12-30 06:05] LABS: ALBUMIN 3.7 g/dl (3.3-4.9); ANION GAP 12 (5-13); BLOOD UREA NITROGEN 14 mg/dl (7-20); CALCIUM 9.1 mg/dl (8.4-10.2); CARBON DIOXIDE 22 mmol/L (21-31); CHLORIDE 104 mmol/L (97-110); CREATININE 0.79 mg/dl (0.61-1.24); GLUCOSE 108 mg/dl (70-220); PHOSPHORUS 3.7 mg/dl (2.5-4.9); POTASSIUM 3.7 mmol/L (3.5-5.1); SODIUM 138 mmol/L (135-144)
[2018-12-30] MEDS: SOD CHLORIDE 0.9% 1,000 ML IV ×2 (09:45→14:19)
[2018-12-30] MEDS: NYSTATIN SUSP 5 ML CUP PO ×4 (09:46→20:59)
[2018-12-30] MEDS: ACYCLOVIR 400 MG TAB PO ×2 (09:46→20:59)
[2018-12-30] MEDS: AMLODIPINE 10 MG TAB PO (09:48)
[2018-12-30] MEDS: DAPSONE 100 MG TAB PO (09:48)
[2018-12-30] MEDS: AMPHOTERICIN B LIPOSOME 300 MG in DEXTROSE 5% 300 ML IVPB (14:29)
[2018-12-30] MEDS: TENOFOVIR 300 MG TAB PO (20:59)
[2018-12-30] MEDS: EFAVIRENZ 600 MG TAB PO (20:59)
[2018-12-30] MEDS: EMTRICITABINE 200 MG CAP PO (20:59)
[2018-12-31] MEDS: SOD CHLORIDE 0.9% 1,000 ML IV ×4 (04:13→22:54)
[2018-12-31] MEDS: PANTOPRAZOLE (EC) 40 MG TAB PO (05:55)
[2018-12-31 06:00] LABS: ANION GAP 10 (5-13); BLOOD UREA NITROGEN 15 mg/dl (7-20); CALCIUM 9.1 mg/dl (8.4-10.2); CARBON DIOXIDE 22 mmol/L (21-31); CHLORIDE 107 mmol/L (97-110); CREATININE 0.73 mg/dl (0.61-1.24); Estimated GFR > 60 mL/min (>60); GLUCOSE 109 mg/dl (70-220); POTASSIUM 3.9 mmol/L (3.5-5.1); SODIUM 139 mmol/L (135-144)
[2018-12-31] MEDS: NYSTATIN SUSP 5 ML CUP PO ×4 (10:29→21:04)
[2018-12-31] MEDS: ACYCLOVIR 400 MG TAB PO ×2 (10:29→21:04)
[2018-12-31] MEDS: DAPSONE 100 MG TAB PO (10:29)
[2018-12-31] MEDS: AMLODIPINE 10 MG TAB PO (10:33)
[2018-12-31] MEDS: AMPHOTERICIN B LIPOSOME 300 MG in DEXTROSE 5% 300 ML IVPB (15:13)
[2018-12-31] MEDS: EFAVIRENZ 600 MG TAB PO (21:04)
[2018-12-31] MEDS: EMTRICITABINE 200 MG CAP PO (21:04)
[2018-12-31] MEDS: TENOFOVIR 300 MG TAB PO (21:04)
[2019-01-01] MEDS: PANTOPRAZOLE (EC) 40 MG TAB PO (05:48)
[2019-01-01 06:10] LABS: ANION GAP 11 (5-13); BLOOD UREA NITROGEN 18 mg/dl (7-20); CALCIUM 8.9 mg/dl (8.4-10.2); CARBON DIOXIDE 23 mmol/L (21-31); CHLORIDE 105 mmol/L (97-110); CREATININE 0.71 mg/dl (0.61-1.24); Estimated GFR > 60 mL/min (>60); GLUCOSE 104 mg/dl (70-220); POTASSIUM 3.9 mmol/L (3.5-5.1); SODIUM 139 mmol/L (135-144)
[2019-01-01] MEDS: DAPSONE 100 MG TAB PO (11:54)
[2019-01-01] MEDS: ACYCLOVIR 400 MG TAB PO ×2 (11:54→21:07)
[2019-01-01] MEDS: AMLODIPINE 10 MG TAB PO (11:54)
[2019-01-01] MEDS: NYSTATIN SUSP 5 ML CUP PO ×4 (13:40→21:07)
[2019-01-01] MEDS: AMPHOTERICIN B LIPOSOME 300 MG in DEXTROSE 5% 300 ML IVPB (14:30)
[2019-01-01] MEDS: AZITHROMYCIN 600 MG TAB PO (14:32)
[2019-01-01] MEDS: SOD CHLORIDE 0.9% 1,000 ML IV (18:22)
[2019-01-01] MEDS: EFAVIRENZ 600 MG TAB PO (21:07)
[2019-01-01] MEDS: EMTRICITABINE 200 MG CAP PO (21:07)
[2019-01-01] MEDS: TENOFOVIR 300 MG TAB PO (21:07)
[2019-01-02] MEDS: PANTOPRAZOLE (EC) 40 MG TAB PO (06:28)
[2019-01-02] MEDS: ACYCLOVIR 400 MG TAB PO ×2 (08:33→21:04)
[2019-01-02] MEDS: NYSTATIN SUSP 5 ML CUP PO ×4 (08:33→21:04)
[2019-01-02] MEDS: AMLODIPINE 10 MG TAB PO (08:33)
[2019-01-02] MEDS: DAPSONE 100 MG TAB PO (08:33)
[2019-01-02] MEDS: SOD CHLORIDE 0.9% 1,000 ML IV ×2 (08:36→14:30)
[2019-01-02] MEDS: AMPHOTERICIN B LIPOSOME 300 MG in DEXTROSE 5% 300 ML IVPB (14:57)
[2019-01-02] MEDS: EFAVIRENZ 600 MG TAB PO (21:04)
[2019-01-02] MEDS: EMTRICITABINE 200 MG CAP PO (21:04)
[2019-01-02] MEDS: TENOFOVIR 300 MG TAB PO (21:04)
[2019-01-03] MEDS: SOD CHLORIDE 0.9% 1,000 ML IV ×2 (00:30→04:48)
[2019-01-03] MEDS: PANTOPRAZOLE (EC) 40 MG TAB PO (05:26)
[2019-01-03] MEDS: AMLODIPINE 10 MG TAB PO (09:10)
[2019-01-03] MEDS: NYSTATIN SUSP 5 ML CUP PO ×2 (09:11→13:30)
[2019-01-03] MEDS: DAPSONE 100 MG TAB PO (09:11)
[2019-01-03] MEDS: ACYCLOVIR 400 MG TAB PO (09:11)
[2019-01-03] MEDS: AMPHOTERICIN B LIPOSOME 300 MG in DEXTROSE 5% 300 ML IVPB (13:30)
== END 2019-01-03 16:25 | disposition home or self-care (01) | DRG 975 ==
LOC: E/R 00:26 → 2NE 03:18
PROVIDERS: Internal Medicine Nephrology
PROC: 009U3ZX Drainage of Spinal Canal, Percutaneous Approach, Diagnostic (ICD-10-PCS; principal; 2018-12-20)
PROC: B01BYZZ Fluoroscopy of Spinal Cord using Other Contrast (ICD-10-PCS; 2018-12-20)
DX: B20 Human immunodeficiency virus [HIV] disease (principal); B45.9 Cryptococcosis, unspecified; J98.11 Atelectasis; B37.0 Candidal stomatitis; B34.9 Viral infection, unspecified; E66.3 Overweight; E78.5 Hyperlipidemia, unspecified; K29.70 Gastritis, unspecified, without bleeding; K21.9 Gastro-esophageal reflux disease without esophagitis; K59.00 Constipation, unspecified; K64.9 Unspecified hemorrhoids; R94.5 Abnormal results of liver function studies; R03.0 Elevated blood-pressure reading, without diagnosis of hypertension; Z68.29 Body mass index [BMI] 29.0-29.9, adult; Z86.19 Personal history of other infectious and parasitic diseases; Z87.01 Personal history of pneumonia (recurrent); Z87.891 Personal history of nicotine dependence
CPT/HCPCS: 36415; 70450; 71045; 71260; 74177; 78806; 80048; 80053; 80069; 81003; 82945; 83605; 83690; 83735; 84100; 84145; 84157; 85025; 85610; 85730; 86140; 86360; 86592; 86635; 86641; 86701; 86703; 87040-91; 87070; 87086; 87210; 87400; 87536; 89051; 93005; 93306; 96365; 99291-25

== ENCOUNTER 2019-01-06 20:12 | Emergency (ER) | payer OTHER ==
[2019-01-06] MEDS: EFAVIRENZ 600 MG TAB PO (22:58)
[2019-01-06] MEDS: TENOFOVIR 300 MG TAB PO (22:58)
[2019-01-06] MEDS: EMTRICITABINE 200 MG CAP PO ×2 (22:58→23:01)
[2019-01-07] MEDS ORDERED: EMTRICITABINE 200 MG CAP PO (09:00)
== END 2019-01-06 23:05 | disposition home or self-care (01) ==
LOC: FTE 20:12
DX: Z76.0 Encounter for issue of repeat prescription (principal); B20 Human immunodeficiency virus [HIV] disease
CPT/HCPCS: 99281; Z7502

== ENCOUNTER 2019-01-07 18:53 | Emergency (ER) | payer OTHER ==
[2019-01-07] MEDS ORDERED: EMTRICITABINE 200 MG CAP PO (20:00)
[2019-01-07] MEDS: EFAVIRENZ 600 MG TAB PO (20:12)
[2019-01-07] MEDS: TENOFOVIR 300 MG TAB PO (20:12)
[2019-01-07] MEDS: EMTRICITABINE 200 MG CAP PO (20:13)
== END 2019-01-07 20:17 | disposition home or self-care (01) ==
LOC: FTE 18:53
DX: Z76.0 Encounter for issue of repeat prescription (principal); Z21 Asymptomatic human immunodeficiency virus [HIV] infection status
CPT/HCPCS: 99283; Z7502

== ENCOUNTER 2019-02-16 17:30 | Emergency (ER) | payer OTHER | END 2019-02-16 19:41 | disposition home or self-care (01) | LOC: FTE 17:30 | DX: M79.12 Myalgia of auxiliary muscles, head and neck (principal); I10 Essential (primary) hypertension; R23.2 Flushing; Z21 Asymptomatic human immunodeficiency virus [HIV] infection status | CPT/HCPCS: 99283; Z7502 ==